=== PATIENT | male | born 1960 | race American Indian/Alaskan Native ===

== ENCOUNTER 2016-06-10 13:39 | Emergency (ER) | payer MEDICARE ==
[2016-06-10] MEDS ORDERED: NACL 0.9% 1000 ML 1,000 ML IV ONE (15:00)
[2016-06-10 15:42] LABS: Hematocrit 43.5 % (35.5-45.6); Hemoglobin 14.2 gm/dl (11.8-15.2); Mean Corpuscular HGB Conc 33 % (32-34); Mean Corpuscular Hemoglobin 27 pg (28-32); Mean Corpuscular Volume 83 fl (84-94); Platelet Count 149 K/mm3 (140-440); Red Blood Count 5.22 M/mm3 (3.65-5.03); Red Cell Distribution Width 15.7 % (13.2-15.2); White Blood Count 3.5 K/mm3 (4.5-11.0)
[2016-06-10 15:55] LABS: INR 1.08 (0.87-1.13)
[2016-06-10 15:56] LABS: Partial Thromboplastin Time 30.5 Sec. (24.2-36.6)
[2016-06-10 15:58] LABS: Alanine Aminotransferase 18 units/L (7-56); Albumin 3.9 g/dL (3.9-5); Albumin/Globulin Ratio 1.3 %; Alkaline Phosphatase 73 units/L (35-129); Anion Gap 21 mmol/L; Bilirubin,Total < 0.2 mg/dL (0.1-1.2); Blood Urea Nitrogen 12 mg/dL (9-20); Calcium 8.4 mg/dL (8.4-10.2); Carbon Dioxide 23 mmol/L (22-30); Chloride 99.5 mmol/L (98-107); Glucose 132 mg/dL (75-100); Lipase 42 units/L (13-60); Sodium 139 mmol/L (137-145)
[2016-06-10 16:15] LABS: Basophils % (Auto) 0.5 % (0.0-1.8); Eosinophils % (Auto) 8.3 % (0.0-4.3)
[2016-06-11] MEDS ORDERED: XARELTO PO ONE (02:00)
[2016-06-11] MEDS ORDERED: PERCOCET 5/325 PO ONE (02:00)
[2016-06-11] MEDS ORDERED: ZITHROMAX PO ONE (02:02)
[2016-06-11 02:22] LABS: Creatine Kinase MB 2.2 ng/mL (0.0-4.0)
[2016-06-11 02:23] LABS: Creatine Kinase 442 units/L (55-170)
[2016-06-11] MEDS ORDERED: PROVENTIL IH ONE ×2 (03:01→03:05)
[2016-06-11] MEDS ORDERED: ATROVENT IH ONE ×2 (03:01→03:06)
[2016-06-11] MEDS ORDERED: DELTASONE PO ONE (04:06)
--- NOTE | 2016-06-11 04:15 | Emergency Department Report ---
ED General Adult HPI - General Chief complaint: GI Bleed Stated complaint: BLOOD IN STOOL/SOB/CHEST PAIN Time Seen by Provider: 06/11/16 01:33 Source: patient Mode of arrival: Ambulatory Limitations: No Limitations - History of Present Illness Initial comments: 55-year-old male with a past medical history CABG 4, PE, hypertension, borderline diabetes, elevated cholesterol, COPD presents to the hospital with multiple complaints. Patient complains of cough and cold symptoms 1 week. Positive cough productive of dark green sputum. Increased wheezing episodes reported. Increased wheezing episodes reported. Temp max of 101. Patient also having lead in his stool 1 yesterday morning with a bowel movement. No further bleeding noted. Patient has right upper quadrant abdominal pain since yesterday morning, worse with palpation sharp in nature. Patient complains of shooting pains going down his left arm and axilla pain worse with palpation. Overall pain rated 8/10 intensity and worse with palpation. No specific alleviating factors. Patient denies nausea, vomiting, or diaphoresis. Patient has been compliant with this around toe but missed his evening dose due to wait in the ED. PMD: [place] Hospital Card: [facility] - Related Data Home Medications Medication Instructions Recorded Confirmed Last Taken Metoprolol [Lopressor TAB] 50 mg PO DAILY 06/11/16 06/11/16 Unknown Rivaroxaban [Xarelto] 20 mg PO QDAY 06/11/16 06/11/16 Unknown Sertraline [Zoloft] 25 mg PO QDAY 06/11/16 06/11/16 Unknown Simvastatin [Zocor TAB] 40 mg PO QHS 06/11/16 06/11/16 Unknown buPROPion [Wellbutrin] 100 mg PO DAILY 06/11/16 06/11/16 Unknown risperiDONE [RisperDAL] 0.25 mg PO QDAY 06/11/16 06/11/16 Unknown traZODone [Desyrel] 50 mg PO QHS 06/11/16 06/11/16 Unknown Previous Rx's Medication Instructions Recorded Last Taken Type Azithromycin [Zithromax Z-DAYTON] 1 dose PO DAILY 5 Days 06/11/16 Unknown Rx Benzonatate [Tessalon Perles] 100 mg PO Q8HR PRN #30 capsule 06/11/16 Unknown Rx HYDROcodone/APAP 5-325 [[place] 1 each PO Q6HR PRN #20 tablet 06/11/16 Unknown Rx 5/325] Allergies Allergy/AdvReac Type Severity Reaction Status Date / Time lisinopril Allergy Angioedema Verified 06/10/16 14:54 ED Review of Systems ROS: Stated complaint: BLOOD IN STOOL/SOB/CHEST PAIN Other details as noted in HPI Comment: All other systems reviewed and negative Other: Constitutional: as per hpi Eyes: No eye pain visual changes ENT: No ear pain or throat pain Neck: Denies pain Respiratory:as per hpi Cardiovascular: as per hpi GI: Denies nausea, vomiting, diarrhea : Denies dysuria Musculoskeletal: Denies back pain Skin: Denies rash, lesions, erythema Neurologic: Denies headache, numbness, weakness Psychiatric: Denies suicidal ideation, hallucinations ED Past Medical Hx - Past Medical History Previous Medical History?: Yes Hx Heart Attack/AMI: Yes (Had CABG) Hx Diabetes: (Type 2, on diet control) Hx Pulmonary Embolism: Yes Hx GERD: Yes Hx Liver Disease: (KALLI) Hx Psychiatric Treatment: Yes Hx COPD: Yes Additional medical history: Had CABG in 2014, Pulmonary embolism , 2015 - Surgical History Past Surgical History?: Yes Hx Open Heart Surgery: Yes Additional Surgical History: CABG in 2014. - Social History Smoking Status: Former Smoker Substance Use Type: Alcohol - Medications Home Medications: Home Medications Medication Instructions Recorded Confirmed Last Taken Type Azithromycin [Zithromax Z-DAYTON] 1 dose PO DAILY 5 Days 06/11/16 Unknown Rx Benzonatate [Tessalon Perles] 100 mg PO Q8HR PRN #30 capsule 06/11/16 Unknown Rx HYDROcodone/APAP 5-325 [[place] 1 each PO Q6HR PRN #20 tablet 06/11/16 Unknown Rx 5/325] Metoprolol [Lopressor TAB] 50 mg PO DAILY 06/11/16 06/11/16 Unknown History Rivaroxaban [Xarelto] 20 mg PO QDAY 06/11/16 06/11/16 Unknown History Sertraline [Zoloft] 25 mg PO QDAY 06/11/16 06/11/16 Unknown History Simvastatin [Zocor TAB] 40 mg PO QHS 06/11/16 06/11/16 Unknown History buPROPion [Wellbutrin] 100 mg PO DAILY 06/11/16 06/11/16 Unknown History risperiDONE [RisperDAL] 0.25 mg PO QDAY 06/11/16 06/11/16 Unknown History traZODone [Desyrel] 50 mg PO QHS 06/11/16 06/11/16 Unknown History ED Physical Exam - General Limitations: No Limitations - Other Other exam information: General: No limitations, patient is alert in no acute distress Head exam: Atraumatic, normocephalic Eyes exam: Normal appearance ENT: Moist mucous membrane, normal oropharynx Neck exam: Normal inspection, full range of motion, no meningismus nontender Respiratory exam: Clear to auscultation bilateral, no wheezes, rales, crackles Cardiovascular: Normal rate and rhythm, sternotomy scar abdomen: Soft, nondistended, right upper quadrant tenderness, with normal bowel sounds, no rebound, or guarding Rectal: Guaiac-negative brown stool Extremity: Full range of motion normal inspection no deformity, left axilla tenderness Back: Normal Inspection, full range of motion, no tenderness Neurologic: Alert, oriented x3, cranial nerves intact, no motor or sensory deficit Psychiatric: normal affect, normal mood Skin: Warm, dry, intact ED Course Vital Signs 06/10/16 06/11/16 06/11/16 14:56 02:23 02:38 Temperature 98.3 F 99.5 F Pulse Rate 78 81 Pulse Rate [ Bilateral] Respiratory 20 15 Rate Respiratory Rate [Bilateral ] Blood Pressure 134/91 O2 Sat by Pulse 98 Oximetry 06/11/16 06/11/16 03:08 03:17 Temperature Pulse Rate Pulse Rate [ 78 87 Bilateral] Respiratory Rate Respiratory 20 18 Rate [Bilateral ] Blood Pressure O2 Sat by Pulse Oximetry - Reevaluation(s) Reevaluation #1: 06/11/16 04:19 Feels better after Percocet. He also received Tessalon Perles, erythromycin and he developed wheezing and shortness of breath here that required albuterol and Atrovent with improvement ED Medical Decision Making - Lab Data Result diagrams: 06/10/16 15:18 06/10/16 15:26 Lab Results 06/10/16 06/10/16 06/10/16 Range/Units 15:18 15:18 15:26 WBC 3.5 L (4.5-11.0) K/mm3 RBC 5.22 H (3.65-5.03) M/mm3 Hgb 14.2 (11.8-15.2) gm/dl Hct 43.5 (35.5-45.6) % MCV 83 L (84-94) fl MCH 27 L (28-32) pg MCHC 33 (32-34) % RDW 15.7 H (13.2-15.2) % Plt Count 149 (140-440) K/mm3 Lymph % (Auto) 38.6 H (13.4-35.0) % [place] % (Auto) 12.0 H (0.0-7.3) % Eos % (Auto) 8.3 H (0.0-4.3) % Baso % (Auto) 0.5 (0.0-1.8) % Lymph # 1.4 (1.2-5.4) K/mm3 [place] # 0.4 (0.0-0.8) K/mm3 Eos # 0.3 (0.0-0.4) K/mm3 Baso # 0.0 (0.0-0.1) K/mm3 Seg Neutrophils % 40.6 (40.0-70.0) % Seg Neutrophils # 1.4 L (1.8-7.7) K/mm3 PT 13.9 (12.2-14.9) Sec. INR 1.08 (0.87-1.13) APTT 30.5 (24.2-36.6) Sec. Sodium (137-145) mmol/L Potassium (3.6-5.0) mmol/L Chloride (98-107) mmol/L Carbon Dioxide (22-30) mmol/L Anion Gap mmol/L BUN (9-20) mg/dL Creatinine (0.8-1.5) mg/dL Estimated GFR ml/min BUN/Creatinine Ratio % Glucose (75-100) mg/dL Calcium (8.4-10.2) mg/dL Total Bilirubin (0.1-1.2) mg/dL AST (5-40) units/L ALT (7-56) units/L Alkaline Phosphatase (35-129) units/L Total Creatine Kinase (55-170) units/L CK-MB (CK-2) (0.0-4.0) ng/mL CK-MB (CK-2) Rel Index (0-4) Troponin T (0.00-0.029) ng/mL Total Protein (6.3-8.2) g/dL Albumin (3.9-5) g/dL Albumin/Globulin Ratio % Lipase (13-60) units/L Blood Type A POSITIVE Antibody Screen Negative 06/10/16 06/10/16 Range/Units 15:26 15:26 WBC (4.5-11.0) K/mm3 RBC (3.65-5.03) M/mm3 Hgb (11.8-15.2) gm/dl Hct (35.5-45.6) % MCV (84-94) fl MCH (28-32) pg MCHC (32-34) % RDW (13.2-15.2) % Plt Count (140-440) K/mm3 Lymph % (Auto) (13.4-35.0) % [place] % (Auto) (0.0-7.3) % Eos % (Auto) (0.0-4.3) % Baso % (Auto) (0.0-1.8) % Lymph # (1.2-5.4) K/mm3 [place] # (0.0-0.8) K/mm3 Eos # (0.0-0.4) K/mm3 Baso # (0.0-0.1) K/mm3 Seg Neutrophils % (40.0-70.0) % Seg Neutrophils # (1.8-7.7) K/mm3 PT (12.2-14.9) Sec. INR (0.87-1.13) APTT (24.2-36.6) Sec. Sodium 139 (137-145) mmol/L Potassium 4.0 (3.6-5.0) mmol/L Chloride 99.5 (98-107) mmol/L Carbon Dioxide 23 (22-30) mmol/L Anion Gap 21 mmol/L BUN 12 (9-20) mg/dL Creatinine 1.2 (0.8-1.5) mg/dL Estimated GFR > 60 ml/min BUN/Creatinine Ratio 10.00 % Glucose 132 H (75-100) mg/dL Calcium 8.4 (8.4-10.2) mg/dL Total Bilirubin < 0.2 (0.1-1.2) mg/dL AST 29 (5-40) units/L ALT 18 (7-56) units/L Alkaline Phosphatase 73 (35-129) units/L Total Creatine Kinase 442 H (55-170) units/L CK-MB (CK-2) 2.2 (0.0-4.0) ng/mL CK-MB (CK-2) Rel Index 0.4 (0-4) Troponin T < 0.010 < 0.010 (0.00-0.029) ng/mL Total Protein 7.0 (6.3-8.2) g/dL Albumin 3.9 (3.9-5) g/dL Albumin/Globulin Ratio 1.3 % Lipase 42 (13-60) units/L Blood Type Antibody Screen - EKG Data -: EKG Interpreted by Me (sinus rhythm rate 79) - Radiology Data Radiology results: image reviewed (chest xray: cabg scar) - Medical Decision Making Discharge patient home on pain medicine and symptomatic treatment for acute bronchitis. Patient provided a copy of his labs as requested. Follow-up will be encouraged. No signs of GI bleed or anemia at this time - Differential Diagnosis pneumonia, bronchitis, CHF, bilary colic, viral syndrome Critical Care Time: No Critical care attestation.: If time is entered above; I have spent that time in minutes in the direct care of this critically ill patient, excluding procedure time. ED Disposition Clinical Impression: Acute bronchitis, RUQ abdominal pain Disposition: DISCHARGED TO HOME OR SELFCARE Is pt being admited?: No Condition: Stable Instructions: Acute Bronchitis (ED), Abdominal Pain (ED) Additional Instructions: There are no signs of bleeding in the gastrointestinal tract at this time. Continue to monitor your stool. Return if symptoms worsen. Take the medication as prescribed for bronchitis. Please note that prednisone may temporarily increase your glucose/blood sugar levels. Prescriptions: Azithromycin [Zithromax Z-DAYTON] 1 dose PO DAILY 5 Days Benzonatate [Tessalon Perles] 100 mg PO Q8HR PRN #30 capsule PRN Reason: Cough HYDROcodone/APAP 5-325 [[place] 5/325] 1 each PO Q6HR PRN #20 tablet PRN Reason: Pain Referrals: DR THAO [Other] - 2-3 Days Forms: Accompanied Note Time of Disposition: 04:29
[2016-06-11 05:03] VITALS: BP 124/79
--- NOTE | 2016-06-11 08:48 | XRay Report ---
CHEST 2 VIEWS: INDICATION: Shortness of breath. COMPARISON: None similar at this institution. FINDINGS: Frontal and lateral chest radiographs, 3 images, demonstrate post CABG changes. Approximately 5.7 cm prominent convex contour along the ascending aorta nonspecific, though not entirely excluded for underlying aneurysm. Mild aortic knob calcifications. Normal heart size and remainder mediastinal contours. Clear lungs. Mild thoracic spine degenerative changes. CONCLUSION: Post CABG changes and clear lungs with other findings, as above. Clinical and prior chest imaging correlation or CT may be considered towards further evaluation of the ascending aorta, as warranted. Thank you for the opportunity to participate in this patient's care.
--- NOTE | 2016-06-11 20:43 | ED Follow Up Radiology ---
Radiology Discrepancy Review - Radiology Findings Radiology findings: A received x-ray variance. Attempts to call pt's number demographics record and it does not accept incoming calls. I then called next of kin his sister. She states there is no alternative number for contact. I asked her when she speaks to him can she please give him the info to call the hospital regarding an incidental finding seen on his x-ray. She states she will pass the message. I will form charge nurse so that a letter may be mailed to the patient's home X-ray shows an approximately 5.7 cm prominent convex contour along the ascending aorta that is nonspecific but you cannot entirely exclude an underlying aneurysm. Unfortunately, we do not have previous x-rays available for comparison to see if this is normal for this patient. CT of the chest may be warranted as outpatient
== END 2016-06-11 05:11 | disposition home or self-care (01) ==
LOC: ED 13:39
DX: R10.11 Right upper quadrant pain (principal); J20.9 Acute bronchitis, unspecified; I25.2 Old myocardial infarction; I10 Essential (primary) hypertension; E11.9 Type 2 diabetes mellitus without complications; I26.99 Other pulmonary embolism without acute cor pulmonale; K21.9 Gastro-esophageal reflux disease without esophagitis; J44.9 Chronic obstructive pulmonary disease, unspecified; E78.00 Pure hypercholesterolemia, unspecified; Z87.891 Personal history of nicotine dependence; Z88.8 Allergy status to other drugs, medicaments and biological substances
CPT/HCPCS: 36415; 71020; 80053; 82271; 82550; 82553; 83690; 84484; 85025; 85610; 85730; 86850; 86900; 86901; 93005; 93010; 94640; 99285; J7512